=== PATIENT | male | born 1975 | race Caucasian/White ===

== ENCOUNTER 2019-08-30 12:11 | Emergency (ER) | payer OTHER ==
[~2019-08-30] VITALS: Ht 185.4 cm; Wt 110.5 kg
[2019-08-30] MEDS ORDERED: PRED20TA (12:28)
[2019-08-30] MEDS ORDERED: NAPR-885 (12:28)
[2019-08-30] MEDS ORDERED: KETOROLAC 60 MG/2 ML VIAL (J1885) IM ONE (13:00)
--- NOTE | 2019-08-30 13:23 | REP ---
Clinical: Lower back pain. Technique: AP, lateral, bilateral oblique, and coned-down views. Findings: Alignment and lordosis is maintained. The vertebral bodies including transverse process and spinous processes are intact and normal. There is no evidence for acute fracture / compression injury or subluxation. No evidence for spondylolysis or spondylolisthesis. No significant degenerative change is noted. Impression: Normal age-appropriate lumbosacral spine series. Electronically Signed by Son Goodwin MD 08/30/2019 01:16 P
[2019-08-30 14:33] VITALS: BP 135/87
== END 2019-08-30 14:36 | disposition home or self-care (01) ==
LOC: M ED 12:11
DX: M54.32 Sciatica, left side (principal); Z79.1 Long term (current) use of non-steroidal anti-inflammatories (NSAID)
CPT/HCPCS: 72110; 99283; G0463; J1885

== ENCOUNTER → 2020-02-16 | Outpatient (CLI) | payer OTHER ==
[~2020-02-16] MED LIST: NAPR-885; PRED20TA
--- NOTE | 2020-02-16 14:58 | REP ---
Clinical: Left lower extremity pain and swelling. Technique: Saenz scale and color Doppler evaluation using linear high frequency transducer. Findings: Ultrasound examination of the left lower extremity deep venous structures from the common femoral vein to the popliteal vein demonstrates normal compressibility flow and wave patterns in response to respiration and augmentation. There is no evidence for deep venous thrombosis. Impression: No evidence for deep venous thrombosis.
== END ==
LOC: M WHC 10:03
PROVIDERS: ATTEND Family Medicine
DX: M79.89 Other specified soft tissue disorders (principal); M79.662 Pain in left lower leg